=== PATIENT | female | born 1985 | race Two or more races ===

== ENCOUNTER 2017-08-20 00:47 | Emergency (ER) | payer SELFPAY ==
[~2017-08-20] VITALS: Ht 157.5 cm; Wt 54.4 kg
[2017-08-20] MEDS ORDERED: LORAZEPAM 2 MG/1 ML VIAL IV ONE (01:15)
[2017-08-20] MEDS ORDERED: IV NORMAL SALINE 1000 ML BAG IV ONE (01:15)
--- NOTE | 2017-08-20 01:15 | NUR ---
Pt is received alertn responsive but a litter bit Alter due to Ingestion off Marijuana that is ate [employer] and now feeling bad. Her care continue as MD at bedside.
[2017-08-20] MEDS ORDERED: ONDANSETRON IV *ER 4 MG/2 ML VIAL IV ONE (01:45)
[2017-08-20 02:05] LABS: ETHANOL < 3 MG/DL (0-0)
[2017-08-20] MEDS ORDERED: LORAZEPAM 2 MG/1 ML VIAL ONE (02:07)
[2017-08-20 02:15] LABS: *URINE HCG, QUAL NEGATIVE (NEGATIVE)
[2017-08-20] MEDS ORDERED: ONDANSETRON 4 MG/2 ML VIAL ONE (02:15)
[2017-08-20 02:21] LABS: *AMPHETAMINE, URINE NEGATIVE (NEGATIVE); *BARBITURATE, URINE NEGATIVE (NEGATIVE); *CANNABINOID, URINE POSITIVE (NEGATIVE); *COCCAINE, URINE NEGATIVE (NEGATIVE); *OPIATE, URINE NEGATIVE (NEGATIVE); *PHENCYCLIDINE SCREEN,URINE NEGATIVE (NEGATIVE)
--- NOTE | 2017-08-20 02:50 | NUR ---
Pt is resting with no s/s off distress as Ativan 0.5mg IVP noted effective and IVF therapy in progress as her care continue with no s/s off distress at this hour.
--- NOTE | 2017-08-20 04:09 | NUR ---
Pt is noted resting in bed as she has Ativan IVP is noted effective, pt is sleeping with no s/s off distress or c/o pain.
--- NOTE | 2017-08-20 04:35 | NUR ---
IV D/CCATH TIP INTACT.PTAWAKE AND ALERT DENIES PAIN.FEELING MUCH BETTER.PTD/CHOMEWITH FRIENDS WITH [facility] GIVEN.PTVERBALIZED UNDERSTANDING.GAIT STEADY
[2017-08-20 04:42] VITALS: BP 104/69
== END 2017-08-20 04:35 | disposition home or self-care (01) ==
LOC: ER 00:52
DX: F41.9 Anxiety disorder, unspecified (principal); F12.10 Cannabis abuse, uncomplicated
CPT/HCPCS: 36415; 80307; 84703; 96361; 96374; 96375; 99284; A4663; G0480; J2060; J2405; 93005; J7030